=== PATIENT | female | born 1995 | race Caucasian/White ===

== ENCOUNTER 2017-12-15 21:31 | Inpatient (IN) ==
[2017-12-15 22:06] VITALS: BMI 38.7
[2017-12-15] MEDS: LR 1,000 ML IV SCH (22:15)
[2017-12-15] MEDS ORDERED: ACETAMINOPHEN 500 MG TABLET PO PRN (23:35)
[2017-12-15] MEDS ORDERED: ZOLPIDEM 10 MG TABLET PO PRN (23:36)
[2017-12-16] MEDS ORDERED: CALCIUM CARBONATE Chewable 500mg TABLET PO PRN ×2 (02:24→06:57)
[2017-12-16] MEDS ORDERED: CARBOPROST 250 MCG/ML INJECTION IM PRN (02:24)
[2017-12-16] MEDS ORDERED: METHYLERGONOVINE 0.2 MG/ML INJECTION IM PRN (02:24)
[2017-12-16] MEDS ORDERED: MAG-AL + SIM ORAL LIQUID 30ml PO PRN ×2 (02:24→06:57)
[2017-12-16] MEDS: LR 1,000 ML IV PRN ×2 (02:31→03:30)
[2017-12-16] MEDS: LR 1,000 ML IV SCH (02:45)
[2017-12-16] MEDS ORDERED: ZOLPIDEM 10 MG TABLET PO PRN (06:15)
[2017-12-16] MEDS ORDERED: HYDROCODONE/APAP 5mg/325mg TABLET PO PRN (06:57)
[2017-12-16] MEDS ORDERED: HYDROCORTISONE 2.5% CREAM 30gm RECTALLY PRN (06:57)
[2017-12-16] MEDS ORDERED: DiphenhydrAMINE 25 MG CAPSULE PO PRN (06:57)
[2017-12-16] MEDS ORDERED: ACETAMINOPHEN 500 MG TABLET PO PRN (06:57)
[2017-12-16] MEDS ORDERED: OXYTOCIN DRIP 30 UNIT/500 ML ML IV SCH (07:00)
[2017-12-16] MEDS: DOCUSATE CALCIUM 240 MG CAPSULE PO SCH (10:33)
[2017-12-16] MEDS ORDERED: ONDANSETRON 4 MG/2 ML INJECTION IVP PRN (11:26)
[2017-12-16] MEDS ORDERED: NALOXONE 0.4 MG/ML INJECTION IVP PRN (11:26)
[2017-12-16] MEDS ORDERED: ROPIVACAINE 1% 10MG/ML INJ 200 MG, SUFentanil 50 MCG in NS 100 ML EPI PRN (11:26)
[2017-12-16] MEDS ORDERED: DiphenhydrAMINE 50 MG/ML INJECTION IVP PRN (11:26)
[2017-12-16] MEDS: IBUPROFEN 800 MG TABLET PO PRN ×2 (13:32→23:09)
--- NOTE | 2017-12-16 14:36 | Labor and Delivery Note ---
DATE OF DELIVERY: 12/16/2017 DIAGNOSES 1. 22-year-old white female, G2, P0 at 39.5 weeks gestational age. 2. Spontaneous labor. 3. Maternal asthma. 4. Epidural anesthesia. 5. Artificial rupture of membranes. 6. Spontaneous vaginal delivery. 7. Female infant, 3527 grams, 8/9/10 Apgars. 8. Second-degree perineal laceration - repaired, right periurethral laceration - repaired, superficial left periurethral laceration. This is a patient of Dr. Blanton who called me yesterday afternoon to discuss contractions and how to know when to come in. She came in later in the evening and her cervix was 3 cm dilated and remained 3 cm after several hours. However , she was juliet strong enough that I did not feel comfortable sending her home and given that she lived in [place], we decided to keep her and we hydrated her with fluids and gave her an Ambien to try to help her rest. About 2:15 this morning, her contractions were markedly stronger and she was then 4 cm dilated, so that represented cervical change and she was admitted as a labor patient and I came in to be in-house at that point in time. The patient progressed in spontaneous labor from there. We called for an epidural block and it was placed but it was a one-sided block so it had to be redone. After a couple hours, we eventually got her comfortable and a Snow catheter was inserted. The cervical check at that point in time was 9.5 cm with a bulging bag so I ruptured the bag and it was clear fluid and the was in the OA presentation. I allowed her to labor down for a while longer and then we began pushing. Spontaneous vaginal delivery occurred about 30 minutes after pushing and it was in the OA presentation. was bulb suctioned after delivery of the head and then again after delivery of the body. Cord was doubly clamped and cut and the infant's father cut the cord. The placenta delivered spontaneously five minutes later and was intact. There was a second- degree perineal laceration about the 7 o'clock position and so it was repaired with 2-0 Vicryl and 3-0 chromic. A right periurethral was repaired with 3-0 chromic. EBL was 250. At the time of dictation, mother and are doing well. [facility]ITAL[facility]
--- NOTE | 2017-12-17 06:42 | Anesthesia Preoperative Report ---
Anesthesia Epidural/Spinal Rec - Date and Time Date: 12/16/17 Procedure: Labor Epidural Plan: Epidural - Vital Signs Vital Signs: Temperature 97.9 F 12/17/17 05:20 Pulse Rate 81 12/17/17 05:20 Respiratory Rate 18 12/17/17 05:20 Blood Pressure 119/78 12/17/17 05:20 Pulse Oximetry 99 12/17/17 05:20 /Para: P:0 - Medictaions & Allergies Inpatient Medications: Current Medications Acetaminophen (Tylenol) 500 - 1,000 mg PO Q4H PRN PRN Reason: Discomfort Hydrocodone Bitart/Acetaminophen ([place] 5/325) 1 - 2 tab PO Q4H PRN PRN Reason: Pain Last Admin: 12/16/17 20:28 Dose: 1 tab Al Hydroxide/Mg Hydroxide (Maalox Plus) 30 ml PO Q4H PRN PRN Reason: Indigestion Calcium Carbonate (Tums) 500 - 1,000 mg PO Q2H PRN PRN Reason: Dyspepsia Diphenhydramine HCl (Benadryl) 25 - 50 mg PO Q6H PRN PRN Reason: Itching Diphenhydramine HCl (Benadryl) 25 - 50 mg IVP Q3H PRN PRN Reason: Itching Docusate Calcium (Surfak) 240 mg PO DAILY WILLIAM Last Admin: 12/16/17 10:33 Dose: Not Given Hydrocortisone (Anusol-Hc 2.5% Cream) 1 applic RECTALLY PRN PRN Ropivacaine 200 mg/ Sufentanil Citrate 50 mcg/ Sodium Chloride 121 mls @ 0 mls/ hr EPI PRN PRN; As Directed PRN Reason: Protocol Ibuprofen (Motrin) 800 mg PO Q8H PRN PRN Reason: Pain Last Admin: 12/16/17 23:09 Dose: 800 mg Magnesium Hydroxide (Mom) 30 ml PO DAILY PRN PRN Reason: Constipation Methylergonovine Maleate (Methergine) 0.2 mg IM O PRN Misoprostol (Cytotec) 800 mcg OK ONCE PRN Naloxone HCl (Narcan) 0.1 mg IVP Q2M PRN PRN Reason: Respiratory distress Ondansetron HCl (Zofran) 4 mg IVP Q6H PRN PRN Reason: Nausea &/or vomiting Phenylephrine HCl (Anusol Supp) 1 supp OK PRN PRN PRN Reason: Hemorrhoids Allergies/Adverse Reactions: Allergies Allergy/AdvReac Type Severity Reaction Status Date / Time cinnamon Allergy Severe Swelling Verified 12/15/17 22:03 of Lip/Tongue/Throat milk Allergy Severe Hives Verified 12/15/17 22:02 - Home Medications Home Medications: Home Medications Medication Instructions Recorded Confirmed Type Albuterol Sulfate [Proair Hfa] 1 puff INH Q4H PRN 12/16/17 12/16/17 History Albuterol [Proventil] 2.5 mg PO TID 12/16/17 12/16/17 History Cetirizine HCl [Zyrtec] 10 mg PO DAILY 12/16/17 12/16/17 History Montelukast Sodium [Singulair] 10 mg PO DAILY 12/16/17 12/16/17 History ,Calc.40/Iron/Folate 1 1 tab PO DAILY 12/16/17 12/16/17 History [Pnv-Select Tablet] Symbicort 160-4.5 Mcg Inhaler 4.5 mcg IH DAILY 12/16/17 12/16/17 History - Medical History Respiratory: Reports: Asthma (frequent inhaler use) Cardiovascular: DENIES: Abnormal EKG, Angina, Arrhythmia, Congestive Heart Failure, Coronary Artery Disease, Heart Murmur, Hypertension, Hypotension, High Cholesterol, Myocardial Infarction, Rheumatic Fever, Valvular Heart Disease, Other Gastrointestional: Reports: Gastroesophageal Reflux Disease (with ) Neuro/Musculoskeletal: Reports: Depression Renal/Endocrine: Reports: Other (Hypoglycemia/insulin resistance- metformin in the past) Other History: Reports: Now - Surgical History HEENT Surgeries: Reports: Tonsillectomy Anesthesia Reactions: None Hx Family Anesthesia Reaction: No History of Motion Sickness: No - Social History Smoking Status: Former smoker - Pertinent Findings Lab Data: CBC and BMP 12/16/17 02:33 - Physical Exam Respiratory Exam: lungs clear, bilateral breath sounds equal Cardiovascular Exam: regular rate and rhythm, no murmur - Airway Assessment Mallampati Score: II TMD: 3 Fingerbreadths Neck Extension: fair Overall Assessment: may be difficult intubation - ASA ASA Score: 2 - Discussion Discussion: Discussed risks/options/alternatives of anesthesia and questions answered. Patient consents. Nursing pain assessment noted. Anesthesia Discussion: family member Attestation Statement: Prior to the delivery of any anesthetic medication, I examined the patient, developed the plan, obtained the patient's consent and discussed the risk and benefits of the procedure with the patient/guardian.
--- NOTE | 2017-12-17 08:08 | OB/GYN Progress Note ---
OB-PP Progress Note - General PPD1 - Subjective Date: 12/17/17 Voiding: voiding - Objective Vital Signs: Last Vital Signs Temp 97.9 F 12/17/17 05:20 Pulse 81 12/17/17 05:20 Resp 18 12/17/17 05:20 BP 119/78 12/17/17 05:20 Pulse Ox 99 12/17/17 05:20 Urine Output: good General: sleeping Laboratory: Laboratory Results - last 24 hr 12/17/17 07:00 WBC 10.6 RBC 3.87 L Hgb 10.0 L D Hct 30.9 L D MCV 79.8 L MCH 25.8 L MCHC 32.4 RDW Std Deviation 38.7 Plt Count 209 MPV 9.7 - Assessment Assessment: - Plan Plan: routine care, discharge home (Patient sleeping. Did not waker her up for morning rounds. RN communicats that patient is ready for dismissal today. )
[2017-12-17] MEDS: DOCUSATE CALCIUM 240 MG CAPSULE PO SCH (09:49)
--- NOTE | 2017-12-17 11:47 | OB/GYN Progress Note ---
OB-PP Progress Note - General PPD1 Maternal Group B Strep: Negative Maternal blood type: A+ Maternal Rubella Status: Immune - Subjective Date: 12/17/17 Lochia: Minimal Pain: controlled Voiding: voiding Subjective Comments: She desires dismissal. - Objective Vital Signs: Last Vital Signs Temp 97.9 F 12/17/17 05:20 Pulse 81 12/17/17 05:20 Resp 18 12/17/17 05:20 BP 119/78 12/17/17 05:20 Pulse Ox 99 12/17/17 05:20 General: alert and oriented Abdomen: fundus firm, non-tender Extremities: non-tender Laboratory: Laboratory Results - last 24 hr 12/17/17 07:00 WBC 10.6 RBC 3.87 L Hgb 10.0 L D Hct 30.9 L D MCV 79.8 L MCH 25.8 L MCHC 32.4 RDW Std Deviation 38.7 Plt Count 209 MPV 9.7 - Assessment Assessment: - Plan Plan: routine care, discharge home, continue PNV
[2017-12-17 14:28] VITALS: BP 125/72; PULSE 77; RESP 16
[2017-12-17] MEDS: IBUPROFEN 800 MG TABLET PO PRN (16:46)
[2017-12-17 17:17] VITALS: TEMP 98; O2SAT 98
== END 2017-12-17 16:50 | disposition home or self-care (01) | DRG 775 ==
LOC: MC 21:31 → OBOBS 21:31 → MC 21:32
PROVIDERS: ADMIT Obstetrics & Gynecology; ATTEND Obstetrics & Gynecology